=== PATIENT | female | born 1975 | race Caucasian/White ===

== ENCOUNTER 2024-06-16 00:29 | Day surgery (SDC) | payer BC, SELFPAY ==
[2024-05-31 09:08] VITALS: BMI 24.8
[2024-06-16 08:50] VITALS: BP 116/74; PULSE 72; RESP 16; TEMP 36.3; O2SAT 99; BMI 25.4
[2024-06-16] MEDS: LACTATED RINGERS 1,000 ML 150 ML IV CONT (09:15)
--- NOTE | 2024-06-16 09:15 | WPDANESEPPF ---
Anes - Initial Pre Proc Eval Procedure: Operation Date: 06/16/24 10:00 Proposed Procedures p Esophagogastroduodenoscopy&Screen Colon - Nabeel De La Rosa MD Date/Time: 06/16/24 09:15 Surgeon: Nabeel De La Rosa MD Pre Op Diagnosis: GERD, Neoplasm screenings Patient Data Age: 48 Gender: F Height: 1.7 m Weight: 73.9 kg Last Vital Signs Temp 97.3 F L 06/16/24 08:50 Pulse 72 06/16/24 08:50 Resp 16 06/16/24 08:50 BP 116/74 06/16/24 08:50 Pulse Ox 99 06/16/24 08:50 O2 Del Method Room Air 06/16/24 08:50 Allergies Allergy/AdvReac Type Severity Reaction Status Date / Time clarithromycin AdvReac Mild Nausea and Verified 06/16/24 09:00 Vomiting Home Medications Medication Instructions Recorded Confirmed Type bupropion HCl 150 mg 24 hr tablet, 150 mg PO QAM 10/04/19 06/16/24 History extended release escitalopram oxalate 10 mg tablet 10 mg PO DAILY 10/04/19 06/16/24 History levonorgestrel 21 mcg/24 hr (up to 1 device intrauterine ONCE 10/04/19 06/16/24 History 8 years) 52 mg intrauterine device (Mirena) Patient hx anesthesia problems: none Family hx anesthesia problems: none Results Review: All pre-operative results and documents have been reviewed as part of the pre-operative evaluation. [facility] Social History Social History Smoking status: Never smoker Alcohol intake: never Substance use: current Substance use type: marijuana Other substance usage details: SMOKES MARIJUANA DAILY Living arrangements: alone Spiritual care concerns: No Anes - Eval Final PreProcedure Day of Procedure 06/16/24 09:15 Patient weight: normal Heart: regular rate and rhythm Lungs: clear to auscultation Airway: Mallampati scale class II Neurological: alert and oriented Last oral intake: >/= 8 hours ASA classification: II Emergent: no Anesthetic plan: proceed Anesthesia type and monitoring: general GIVS and standard monitoring Results Review: All pre-operative results and documents have been reviewed as part of the pre-operative evaluation. Informed Consent: The patient's anesthetic plan and its attendant risks and benefits were discussed with the patient/family/POA. Questions were solicited and answers provided to the satisfaction of the patient/family/POA.
--- NOTE | 2024-06-16 10:21 | PM.HPGS ---
History of Present Illness History of Present Illness Consent: Risks, benefits, and alternatives have been discussed and questions answered. Patient agrees to proceed with procedure. Chief complaint: GERD, Neoplasm screenings Narrative: Jerrica Meza is a 48 year old female here for colonoscopy (last one 15 years ago) and first EGD. she has indigestion and few occasions noted blood in stools. Review of Systems Review of Systems: All systems reviewed & are unremarkable except as noted in HPI and below PMFSH Past Medical History Medical History (Updated 06/16/24 @ 10:24 by Nabeel De La Rosa MD) Blood in stool Dyspepsia Social History Social History Smoking status: Never smoker Alcohol intake: never Substance use: current Substance use type: marijuana Other substance usage details: SMOKES MARIJUANA DAILY Living arrangements: alone Spiritual care concerns: No Meds Home Medications and Allergies Home Medications Medication Instructions Recorded Confirmed Type bupropion HCl 150 mg 24 hr tablet, 150 mg PO QAM 10/04/19 06/16/24 History extended release escitalopram oxalate 10 mg tablet 10 mg PO DAILY 10/04/19 06/16/24 History levonorgestrel 21 mcg/24 hr (up to 1 device intrauterine ONCE 10/04/19 06/16/24 History 8 years) 52 mg intrauterine device (Mirena) Allergies Allergy/AdvReac Type Severity Reaction Status Date / Time clarithromycin AdvReac Mild Nausea and Verified 06/16/24 09:00 Vomiting Vital Signs Vital Signs - 24 hr 06/16/24 08:50 Temperature 97.3 F L Pulse Rate 72 Respiratory Rate 16 Blood Pressure 116/74 Pulse Oximetry 99 Oxygen Delivery Room Air Exam Const: General: comfortable and no acute distress HENMT: Face/Nose/Sinus: Normal nares present Eyes: General: appearance normal, both eyes and all related structures Neck: Neck: no JVD Resp: Auscultation: clear to auscultation bilaterally Cardio: Rate: regular rate Rhythm: regular rhythm GI: Inspection: non-distended GI Palp: Yes Soft to palpation Skin: General skin exam: normal color Neuro: General: gait normal Speech: normal speech Extrem: General: normal to inspection Psych: Mental Status: mental status grossly normal Assessment and Plan Assessment and plan (1) Dyspepsia: Code(s): R10.13 - Epigastric pain Status: Acute Assessment and Plan: egd with bx (2) Blood in stool: Code(s): K92.1 - Melena Status: Acute Assessment and Plan: colonoscopy
--- NOTE | 2024-06-16 10:41 | SUR.OPER ---
EGD end time: 103, Colonoscopy start time: 1038
[2024-06-16 10:55] VITALS: BP 90/58; PULSE 64; RESP 12; O2SAT 99
[2024-06-16 11:05] VITALS: BP 91/58; PULSE 72; RESP 22; O2SAT 100
[2024-06-16 11:15] VITALS: BP 113/79; PULSE 63; RESP 22; O2SAT 100
== END 2024-06-16 11:27 | disposition home or self-care (01) ==
PROVIDERS: PCP Nurse Practitioner Family; Visit Provider Internal Medicine Gastroenterology
PROC: 0DJ08ZZ Inspection of Upper Intestinal Tract, Via Natural or Artificial Opening Endoscopic (ICD-10-PCS; CPT 43235; principal; 2024-06-16 10:00)
DX: K64.4 Residual hemorrhoidal skin tags (principal); K64.8 Other hemorrhoids; F12.90 Cannabis use, unspecified, uncomplicated
CPT/HCPCS: 45378; 43239; 88305; J1596; J2704; J7120